=== PATIENT | female | born 2000 | race Caucasian/White ===

== ENCOUNTER 2022-06-21 22:22 | Day surgery (SDC) | payer BC, MEDICAID ==
[2022-06-21 22:46] VITALS: BMI 24.5
[2022-06-22] MEDS ORDERED: hydrALAZINE 20 MG/ML VIAL SLOW IVP PRN (00:11)
[2022-06-22 00:44] LABS: Fetal Membranes Rupture No Membranes Rupture (No Rupture)
== END 2022-06-22 01:43 | disposition home or self-care (01) ==
LOC: CSHLD/OP 22:22
PROVIDERS: ATTEND Obstetrics & Gynecology
DX: O98.513 Other viral diseases complicating pregnancy, third trimester (principal); A60.00 Herpesviral infection of urogenital system, unspecified; Z3A.34 34 weeks gestation of pregnancy
CPT/HCPCS: 84112; 87480; 87510; 87660; 99285

== ENCOUNTER 2022-07-07 02:36 | Day surgery (SDC) | payer BC, MEDICAID ==
[2022-07-07 03:08] VITALS: BMI 25.3
[2022-07-07] MEDS ORDERED: hydrALAZINE 20 MG/ML VIAL SLOW IVP PRN (03:37)
[2022-07-07] MEDS ORDERED: Promethazine 25 MG TAB PO SCH (03:45)
[2022-07-07] MEDS ORDERED: Acetaminophen 500 MG TAB PO SCH (03:45)
[2022-07-07] MEDS ORDERED: Promethazine HCl 25 MG/ML VIAL IM SCH (03:45)
[2022-07-07 04:28] LABS: Fetal Membranes Rupture No Membranes Rupture (No Rupture)
[2022-07-07 04:33] LABS: #Eosinphils 0.1 10x3/uL (0.0-0.5); #Monocytes 0.7 10x3/uL (0.0-1.1); #Neutrophils 5.5 10x3/uL (1.5-8.4); %Basophils 0.2 % (0.0-2.0); %Lymphocytes 31.3 % (18.0-47.0); %Monocytes 7.3 % (0.0-10.0); %Neutrophils 59.8 % (40.0-75.0); Hemoglobin 11.8 g/dL (12.0-15.5); Mean Corpuscular HGB CONC 33.9 g/dL (32.0-36.0); Mean Corpuscular Hemoglobin 27.7 pg (27.0-33.0); Mean Corpuscular Volume 81.7 fl (81.6-98.3); Mean Platelet Volume 10.9 fl (7.4-10.4); Platelet Count 233 10x3/uL (150-450); RBC Distribution Width 12.8 % (11.5-14.5); Red Blood Cell (RBC) Count 4.26 10x6/uL (3.90-5.03); White Blood Cell (WBC) Count 9.2 10x3/uL (3.5-10.5)
[2022-07-07 04:43] LABS: ALT (SGPT) 15 U/L (8-55); AST (SGOT) 17 U/L (5-34); Albumin 3.6 g/dL (3.5-5.0); Alkaline Phosphatase 203 U/L (40-100); Anion Gap 13 mmol/L (10-20); BUN (Urea Nitrogen) 5 mg/dL (7.0-18.7); Bilirubin, Total 0.3 mg/dL (0.2-1.2); Calc. Creatinine Clearance 183 mL/min (70-130); Calcium 9.6 mg/dL (7.8-10.44); Carbon Dioxide 22 mmol/L (22-29); Chloride 105 mmol/L (98-107); Estimated GFR 134; Globulin 3.1 g/dL (2.4-3.5); Glucose 97 mg/dL (70-105); Lipase 17 U/L (8-78); Potassium 3.8 mmol/L (3.5-5.1); Protein, Total 6.7 g/dL (6.0-8.3); Sodium 136 mmol/L (136-145)
[2022-07-07 05:02] LABS: Bilirubin Neg (Negative); Blood, Urine 10 (Negative); Clarity Clear (Clear); Glucose, Urine (Dipstick) Normal (Negative); Ketone, Urine Negative (Negative); Leukocyte Negative (Negative); Nitrite Negative (Negative); Protein, Urine (Dipstick) Negative (Neg-Trace); Specific Gravity, Urine 1.005 (1.002-1.036); Urobilinogen Normal mg/dL (Less than 2); pH, Urine 6.5 (5.0-9.0)
[2022-07-07 05:06] LABS: Urine Culture Reflex No No
[2022-07-07 05:19] LABS: Bacteria/HPF None Seen HPF (None Seen); Squamous Epithelial 0-3 HPF (0-3); Transitional Epithelial 0-3 HPF (None Seen); WBC/HPF 0-3 HPF (0-3)
[2022-07-07 05:20] LABS: RBC/HPF None Seen HPF (0-3)
[2022-07-07] MEDS ORDERED: diphenhydrAMINE 50 MG/ML VIAL IVP SCH (06:45)
== END 2022-07-07 08:53 | disposition home or self-care (01) ==
LOC: CSHLD/OP 02:36
PROVIDERS: ATTEND Obstetrics & Gynecology
DX: O26.893 Other specified pregnancy related conditions, third trimester (principal); R10.11 Right upper quadrant pain; R10.31 Right lower quadrant pain; M54.50 Low back pain, unspecified; O21.2 Late vomiting of pregnancy; O99.891 Other specified diseases and conditions complicating pregnancy; N13.30 Unspecified hydronephrosis; Z3A.36 36 weeks gestation of pregnancy
CPT/HCPCS: 76700; 80053; 81001; 83690; 84112; 85025; 87480; 87510; 87660; J0595; J1200; J2550

== ENCOUNTER 2022-07-10 14:10 | Day surgery (SDC) | payer MEDICAID ==
[2022-07-10] MEDS ORDERED: hydrALAZINE 20 MG/ML VIAL SLOW IVP PRN (14:35)
[2022-07-10] MEDS ORDERED: Acetaminophen 500 MG TAB PO SCH (17:15)
== END 2022-07-10 18:49 | disposition home health service (06) ==
LOC: CSHLD/OP 14:10
PROVIDERS: ATTEND Obstetrics & Gynecology
DX: O9A.213 Injury, poisoning and certain other consequences of external causes complicating pregnancy, third trimester (principal); T14.90XA Injury, unspecified, initial encounter; Z79.899 Other long term (current) drug therapy; Z91.041 Radiographic dye allergy status; Z88.8 Allergy status to other drugs, medicaments and biological substances; Z87.891 Personal history of nicotine dependence; Z98.890 Other specified postprocedural states; W03.XXXA Other fall on same level due to collision with another person, initial encounter
CPT/HCPCS: 76819; 99283

== ENCOUNTER 2022-08-02 15:15 | Emergency (ER) | payer OTHER ==
[2022-08-02 15:56] LABS: #Eosinphils 0.2 10x3/uL (0.0-0.5); #Monocytes 0.7 10x3/uL (0.0-1.1); #Neutrophils 6.5 10x3/uL (1.5-8.4); %Basophils 0.3 % (0.0-2.0); %Lymphocytes 22.4 % (18.0-47.0); %Monocytes 7.1 % (0.0-10.0); %Neutrophils 67.3 % (40.0-75.0); Hemoglobin 9.1 g/dL (12.0-15.5); Mean Corpuscular HGB CONC 31.8 g/dL (32.0-36.0); Mean Corpuscular Hemoglobin 28.3 pg (27.0-33.0); Mean Corpuscular Volume 88.8 fl (81.6-98.3); Mean Platelet Volume 9.6 fl (7.4-10.4); Platelet Count 388 10x3/uL (150-450); RBC Distribution Width 17.8 % (11.5-14.5); Red Blood Cell (RBC) Count 3.22 10x6/uL (3.90-5.03); White Blood Cell (WBC) Count 9.6 10x3/uL (3.5-10.5)
[2022-08-02 16:07] LABS: ALT (SGPT) 17 U/L (8-55); AST (SGOT) 18 U/L (5-34); Albumin 3.5 g/dL (3.5-5.0); Alkaline Phosphatase 129 U/L (40-100); Anion Gap 12 mmol/L (10-20); BUN (Urea Nitrogen) 10 mg/dL (7.0-18.7); Bilirubin, Total 0.7 mg/dL (0.2-1.2); Calc. Creatinine Clearance 0 mL/min (70-130); Calcium 8.8 mg/dL (7.8-10.44); Carbon Dioxide 21 mmol/L (22-29); Chloride 108 mmol/L (98-107); Estimated GFR 132; Globulin 3.4 g/dL (2.4-3.5); Glucose 95 mg/dL (70-105); Lipase 19 U/L (8-78); Potassium 3.6 mmol/L (3.5-5.1); Protein, Total 6.9 g/dL (6.0-8.3); Sodium 137 mmol/L (136-145)
[2022-08-02 16:10] LABS: Bilirubin Neg (Negative); Blood, Urine 150 (Negative); Clarity Slightly Cloudy (Clear); Glucose, Urine (Dipstick) Normal (Negative); Ketone, Urine Negative (Negative); Leukocyte 500 (Negative); Nitrite Negative (Negative); Protein, Urine (Dipstick) 15 mg/dl (Neg-Trace); Urobilinogen Normal mg/dL (Less than 2)
[2022-08-02 16:20] LABS: Bacteria/HPF Rare-Few HPF (None Seen)
[2022-08-02] MEDS ORDERED: Ketorolac Tromethamine 30 MG/ML VIAL ONE (16:35)
[2022-08-02] MEDS ORDERED: Ondansetron PF 4 MG/2 ML Vial ONE (16:36)
[2022-08-02] MEDS ORDERED: diphenhydrAMINE 50 MG/ML VIAL ONE (16:37)
== END 2022-08-02 18:34 | disposition home or self-care (01) ==
LOC: CSHERS 15:15
DX: R10.13 Epigastric pain (principal); R10.11 Right upper quadrant pain
CPT/HCPCS: 36415; 71045; 76705; 80053; 81003; 81015; 83605; 83690; 85025; 87040; 87086; 93005; 93010; 96361; 96374; 96375; J1200; J1885; J2405

== ENCOUNTER 2023-11-15 11:31 | Day surgery (SDC) | payer OTHER ==
[2023-11-14 16:09] VITALS: BMI 24.8
[2023-11-15 12:24] LABS: #Monocytes 0.3 10x3/uL (0.0-1.1); #Neutrophils 3.5 10x3/uL (1.5-8.4); %Basophils 0.3 % (0.0-2.0); %Eosinophils 0.6 % (0.0-6.0); %Lymphocytes 41.4 % (18.0-47.0); %Monocytes 4.6 % (0.0-10.0); %Neutrophils 52.9 % (40.0-75.0); Hematocrit 40.5 % (34.9-44.5); Hemoglobin 13.5 g/dL (12.0-15.5); Mean Corpuscular HGB CONC 33.3 g/dL (32.0-36.0); Mean Corpuscular Hemoglobin 28.2 pg (27.0-33.0); Mean Corpuscular Volume 84.6 fl (81.6-98.3); Mean Platelet Volume 9.7 fl (7.4-10.4); Platelet Count 241 10x3/uL (150-450); Red Blood Cell (RBC) Count 4.79 10x6/uL (3.90-5.03); White Blood Cell (WBC) Count 6.6 10x3/uL (3.5-10.5)
[2023-11-15] MEDS ORDERED: Dexamethasone 4 mg/ml Vial ONE (13:11)
[2023-11-15] MEDS ORDERED: Midazolam HCl 2 mg/2 ml Vial ONE (13:11)
[2023-11-15] MEDS ORDERED: Ondansetron PF 4 MG/2 ML Vial ONE (13:11)
[2023-11-15] MEDS ORDERED: fentaNYL 50 mcg/mL 1 mL Vial ONE ×2 (13:11→14:46)
[2023-11-15] MEDS ORDERED: PROPOFOL 20 ML ONE (13:11)
[2023-11-15] MEDS ORDERED: Lidocaine 2% PF 5 ML VIAL ONE (13:11)
[2023-11-15] MEDS ORDERED: Methylergonovine 0.2 MG/ML VIAL ONE ×2 (13:19→13:25)
[2023-11-15] MEDS ORDERED: Tranexamic Acid 1,000 MG/10 ML VIAL ONE (13:20)
[2023-11-15] MEDS ORDERED: cefTRIAXone (ROCEPHIN) 1 GM VIAL ONE (13:37)
[2023-11-15] MEDS ORDERED: Misoprostol 200 MCG TAB ONE (13:41)
[2023-11-15] MEDS ORDERED: Silver Nitrate Application 1 EACH ONE (14:11)
[2023-11-15] MEDS ORDERED: Meperidine HCl/PF 25 MG/ML VIAL ONE (14:21)
[2023-11-15] MEDS ORDERED: HYDROcodone/Acetaminophen 5/325 mg Tablet ONE (15:05)
== END 2023-11-15 15:45 | disposition home or self-care (01) ==
LOC: CSHSDC 11:31
PROVIDERS: ATTEND Obstetrics & Gynecology
PROC: 10D17ZZ Extraction of Products of Conception, Retained, Via Natural or Artificial Opening (ICD-10-PCS; principal; 2023-11-15)
DX: O02.1 Missed abortion (principal); Z88.8 Allergy status to other drugs, medicaments and biological substances; Z91.040 Latex allergy status; Z79.899 Other long term (current) drug therapy; Z3A.08 8 weeks gestation of pregnancy
CPT/HCPCS: 36415; 85025; 86850; 86900; 86901; 88305; J0696; J1100; J2001; J2175; J2210; J2250; J2405; J2704; J3010